=== PATIENT | female | born 1965 | race American Indian/Alaskan Native ===

== ENCOUNTER 2016-12-23 11:06 | Emergency (ER) | payer SELFPAY ==
[2016-12-23] MEDS ORDERED: NORVASC PO ONE (12:11)
--- NOTE | 2016-12-23 12:19 | Emergency Department Report ---
ED General Adult HPI - General Chief complaint: High BP Stated complaint: HIGH BLOOD PRESSURE, HEADACHE,MED REFILL Time Seen by Provider: 12/23/16 12:05 Source: patient Mode of arrival: Ambulatory Limitations: No Limitations - History of Present Illness Initial comments: pt complain of blood pressure medication x 2 days .pt state that she unable to see pcp at present .pt denies any blurry vision ,dizziness or headache . Onset/Timin -: days(s) Severity scale (0 -10): 0 - Related Data Previous Rx's Medication Instructions Recorded Last Taken Type HYDROcodone/APAP 10-325 [Watkins 1 each PO Q6HR PRN #14 tablet 09/13/13 Unknown Rx 10/325] amLODIPine [Norvasc] 5 mg PO DAILY #90 tab 12/23/16 Unknown Rx Allergies Allergy/AdvReac Type Severity Reaction Status Date / Time aspirin Allergy Angioedema Verified 12/23/16 11:08 codeine Allergy Angioedema Verified 12/23/16 11:08 ED Review of Systems ROS: Stated complaint: HIGH BLOOD PRESSURE, HEADACHE,MED REFILL Other details as noted in HPI Constitutional: denies: chills, fever Eyes: denies: eye pain, eye discharge, vision change ENT: denies: ear pain, throat pain Respiratory: denies: cough, shortness of breath, wheezing Cardiovascular: denies: chest pain, palpitations Endocrine: no symptoms reported Gastrointestinal: denies: abdominal pain, nausea, diarrhea Genitourinary: denies: urgency, dysuria, discharge Musculoskeletal: denies: back pain, joint swelling, arthralgia Skin: denies: rash, lesions Neurological: denies: headache, weakness, paresthesias, confusion Psychiatric: denies: anxiety, depression Hematological/Lymphatic: denies: easy bleeding, easy bruising ED Past Medical Hx - Past Medical History Hx Hypertension: Yes Hx Asthma: Yes - Surgical History Additional Surgical History: hysterectomy - Social History Smoking Status: Never Smoker Substance Use Type: None - Medications Home Medications: Home Medications Medication Instructions Recorded Confirmed Last Taken Type HYDROcodone/APAP 10-325 [Watkins 1 each PO Q6HR PRN #14 tablet 09/13/13 Unknown Rx 10/325] amLODIPine [Norvasc] 5 mg PO DAILY #90 tab 12/23/16 Unknown Rx ED Physical Exam - General Limitations: No Limitations General appearance: alert, in no apparent distress - Eye Eye exam: Present: normal appearance, PERRL Pupils: Present: normal accommodation - ENT ENT exam: Present: normal exam - Neck Neck exam: Present: normal inspection - Respiratory Respiratory exam: Present: normal lung sounds bilaterally. Absent: respiratory distress - Cardiovascular Cardiovascular Exam: Present: regular rate, normal rhythm ED Course Vital Signs 12/23/16 11:11 Blood Pressure 163/99 [Right] ED Medical Decision Making - Medical Decision Making HTN out of medication for 2 days no symptoms at present Critical care attestation.: If time is entered above; I have spent that time in minutes in the direct care of this critically ill patient, excluding procedure time. ED Disposition Clinical Impression: Medication refill HTN (hypertension) Qualifiers: Hypertension type: essential hypertension Qualified Code(s): I10 - Essential ( primary) hypertension Disposition: TO HOME OR SELFCARE Is pt being admited?: No Does the pt Need Aspirin: No Condition: Stable Instructions: Hypertension (ED) Additional Instructions: please follow up primary care doctor Prescriptions: amLODIPine [Norvasc] 5 mg PO DAILY #90 tab Referrals: PRIMARY CARE, [Primary Care Provider] - 3-5 Days Time of Disposition: 12:22
[2016-12-23 12:32] VITALS: BP 156/97
== END 2016-12-23 12:52 | disposition home or self-care (01) ==
LOC: ED 11:06
DX: I10 Essential (primary) hypertension (principal); Z88.6 Allergy status to analgesic agent
CPT/HCPCS: 99282